=== PATIENT | male | born 1955 | race Caucasian/White ===

== ENCOUNTER → 2022-04-17 | Outpatient (CLI) | payer MEDICARE ==
--- NOTE | 2022-04-17 09:41 | US ---
EXAMINATION TYPE: US abdomen complete DATE OF EXAM: 04/17/2022 COMPARISON: NONE CLINICAL HISTORY: Z13.6 SCREENING FOR CARDIOVASCULAR DISEASE. No pain. No prior surgeries. TECHNIQUE: Multiple sonographic images of the abdomen are obtained. FINDINGS: EXAM MEASUREMENTS: Liver Length: 15.6 cm Gallbladder Wall: 0.1 cm CBD: 0.4 cm Spleen: 6.8 cm Right Kidney: 9.9 x 4.2 x 4.6 cm Left Kidney: 11.0 x 4.7 x 5.9 cm DOUGH MIXING MACHINE OPERATOR NOTES: Limited due to bowel gas Pancreas: Body and tail obscured by overlying bowel gas Liver: wnl Gallbladder: wnl Evidence for sonographic Thomason's sign: neg CBD: wnl Spleen: Limited due to bowel gas Right Kidney: No hydronephrosis or masses seen Left Kidney: No hydronephrosis or masses seen Upper IVC: wnl Abd Aorta: No AAA visualized, plaque visualized IMPRESSION: No evidence of acute process. No evidence of aortic aneurysm.
--- NOTE | 2022-04-17 10:05 | CA ---
Transthoracic Echo Report Name: Arnaldo John Age: 66 Gender: M : 1955 Exam Date: 04/17/2022 08:29 Exam Location: [facility] Ht (in): 72 Wt (lb): 162 Ordering Physician: Ricky Kovacs MD Attending/Referring Phys: Sales And Marketing Assistant Yanelis Martinez RDCS Procedure CPT: Indications: I49.9 arrythmia Cardiac Hx: Technical Quality: Good Contrast 1: Total Dose (mL): Contrast 2: Total Dose (mL): MEASUREMENTS (Male / Female) Normal Values 2D ECHO LV Diastolic Diameter PLAX 5.2 cm 4.2 - 5.9 / 3.9 - 5.3 cm LV Systolic Diameter PLAX 4.7 cm IVS Diastolic Thickness 1.0 cm 0.6 - 1.0 / 0.6 - 0.9 cm LVPW Diastolic Thickness 1.2 cm 0.6 - 1.0 / 0.6 - 0.9 cm LV Relative Wall Thickness 0.4 RV Internal Dim ED PLAX 4.2 cm LA Systolic Diameter LX 3.2 cm 3.0 - 4.0 / 2.7 - 3.8 cm LV Diastolic Volume MOD 4C 113.4 cm??? LV Systolic Volume MOD 4C 61.6 cm??? LV Ejection Fraction MOD 4C 45.7 % LV Diastolic Length 4C 8.3 cm LV Systolic Length 4C 6.5 cm LV Diastolic Volume MOD 2C 125.9 cm??? LV Systolic Volume MOD 2C 72.9 cm??? LV Ejection Fraction MOD 2C 42.1 % LV Diastolic Length 2C 10.4 cm LV Systolic Length 2C 8.3 cm LA Volume 70.6 cm??? 18 - 58 / 22 - 52 cm??? M-MODE Aortic Root Diameter MM 3.5 cm MV E Point Septal Separation 0.5 cm AV Cusp Separation MM 2.0 cm DOPPLER AV Peak Velocity 185.5 cm/s AV Peak Gradient 13.8 mmHg MV Area PHT 5.1 cm??? Mitral E Point Velocity 81.5 cm/s Mitral A Point Velocity 37.8 cm/s Mitral E to A Ratio 2.2 MV Deceleration Time 147.8 ms MV E' Velocity 12.2 cm/s Mitral E to MV E' Ratio 6.7 TR Peak Velocity 264.2 cm/s TR Peak Gradient 27.9 mmHg Right Ventricular Systolic Press 31.6 mmHg FINDINGS Left Ventricle Left ventricular ejection fraction is estimated at 40-45 %. Left ventricular cavity size normal. Borderline left ventricular hypertrophy. Right Ventricle Severe right ventricular dilatation. Right ventricular systolic pressure within normal limits. Right Atrium Normal right atrial size. Left Atrium Moderately increased left atrial volume. Mildly increased left atrial area. No evidence for an atrial septal defect. Mitral Valve Mitral annular calcification. Mild mitral regurgitation. Aortic Valve Trileaflet aortic valve. No aortic valve stenosis or regurgitation. Focal thickening of the aortic valve cusps. Tricuspid Valve Mild tricuspid regurgitation. Pulmonic Valve Trace pulmonic regurgitation. Pericardium Normal pericardium. No pericardial effusion. Aorta Normal size aortic root and proximal ascending aorta. CONCLUSIONS Mild LV systolic dysfunction. Moderate left atrial enlargement. Mild mitral regurgitation. I took sclerosis without any stenosis Previewed by: Dr. Ranjeet Freeman MD (Electronically Signed) Final Date: 17 April 2022 10:04
== END | disposition home or self-care (01) ==
LOC: RADUSWWP 07:29
PROVIDERS: ATTEND Family Medicine
DX: I50.1 Left ventricular failure, unspecified (principal); I34.0 Nonrheumatic mitral (valve) insufficiency
CPT/HCPCS: 76700; 93306

== ENCOUNTER 2022-06-08 08:11 | Day surgery (SDC) | payer MEDICARE ==
[2022-06-06 16:09] VITALS: BMI 21.9
[~2022-06-08 08:11] MED LIST: LACTATED RINGERS 1,000 ML IV SCH
[2022-06-08 08:26] VITALS: RESP 16; TEMP 98.6
[2022-06-08] MEDS ORDERED: PROPOFOL 10 MG/ML 20 ML VIAL IV ONE (09:52)
--- NOTE | 2022-06-08 10:06 | P.PCN ---
Date of Procedure: 06/08/22 Procedure(s) Performed: BRIEF HISTORY: Patient is a 66-year-old pleasant white male scheduled for an elective colonoscopy as a part of screening for colon cancer. PROCEDURE PERFORMED: Colonoscopy with biopsy and snare polyp rectum. PREOPERATIVE DIAGNOSIS: Screening for colon cancer. IV sedation per Anesthesia. PROCEDURE: After informed consent was obtained, the patient, was brought into the endoscopy unit. IV sedation was administered by Anesthesia under continuous monitoring. Digital rectal examination was normal. Initially the Olympus CF-160 flexible video colonoscope was then inserted in the rectum, gradually advanced into the cecum without any difficulty. Careful examination was performed as the scope was gradually being withdrawn. Ileocecal valve and the appendiceal orifice were visualized and appeared normal. Prep was excellent. Mucosa of the cecum 3- 4 mm sessile polyp removed by cold biopsy. In the hepatic flexure there was a 1 cm flat polyp removed by snare polypectomy. Rest of the, ascending colon, transverse colon, descending colon, normal. In the descending colon there was a 5 limited polyp removed by snare polypectomy. Scattered sigmoid diverticulosis seen. Rest of the sigmoid colon, and rectum appeared normal. Retroflexion was performed in the rectum and no lesions were seen. The patient tolerated the procedure well. IMPRESSION: 3-4 mm cecal polyp status post cold biopsy 1 cm flat hepatic flexure polyp status post polypectomy 5 mm descending colon polyp status post polypectomy Scattered sigmoid diverticulosis RECOMMENDATIONS: Findings of this examination were discussed with the patient as well as his family. He was advised to follow with the biopsy results. If the biopsy reveals adenoma he can have a repeat colonoscopy in 3 years.
[2022-06-08 10:17] VITALS: PULSE 50
[2022-06-08 10:36] VITALS: BP 110/66
== END 2022-06-08 10:41 | disposition home or self-care (01) ==
LOC: ORWHC2ENDO 08:11
PROVIDERS: ATTEND Internal Medicine Gastroenterology
DX: Z12.11 Encounter for screening for malignant neoplasm of colon (principal); D12.0 Benign neoplasm of cecum; D12.3 Benign neoplasm of transverse colon; D12.4 Benign neoplasm of descending colon; K57.30 Diverticulosis of large intestine without perforation or abscess without bleeding
CPT/HCPCS: 88305; 45380; 45385; J2704

== ENCOUNTER 2022-06-13 09:46 | Day surgery (SDC) | payer MEDICARE ==
[2022-06-11 08:33] VITALS: BMI 21.7
[~2022-06-13 09:46] MED LIST changes: +ALPRAZolam 0.25 MG TAB PO PRN; +ALPRAZolam 0.5 MG TAB PO PRN; +ASPIRIN 325 MG TAB PO STA; +ATORVASTATIN 80 MG TAB PO STA; +HEPARIN SODIUM,PORCINE 10,000 UNIT in SODIUM CHLORIDE 0.9% 1,000 ML IRRIGATION PRN; +HEPARIN SODIUM,PORCINE 2,500 UNIT in SODIUM CHLORIDE 0.9% 250 ML IRRIGATION PRN; -LACTATED RINGERS 1,000 ML IV SCH; +NITROGLYCERIN SL TABS 0.4 MG TAB SUBLINGUAL PRN; +SODIUM CHLORIDE 0.9% 1,000 ML in EMPTY BAG 1 BAG IV SCH
[2022-06-13 10:09] VITALS: RESP 18; TEMP 97.8
[2022-06-13 10:12] LABS: Basophils # (A) 0.1 k/uL (0-0.2); Basophils % (A) 1 %; Eosinophils # (A) 0.1 k/uL (0-0.7); Eosinophils % (A) 1 %; HCT 44.1 % (39.0-53.0); HGB 14.8 gm/dL (13.0-17.5); Lymphocytes # (A) 1.6 k/uL (1.0-4.8); Lymphocytes % (A) 27 %; MCH 32.3 pg (25.0-35.0); MCHC 33.6 g/dL (31.0-37.0); MCV 96.3 fL (80.0-100.0); Mean Platelet Volume 8.5; Monocytes # (A) 0.4 k/uL (0-1.0); Monocytes % (A) 7 %; Neutrophils # (A) 3.5 k/uL (1.3-7.7); Neutrophils % (A) 61 %; Platelet Count 287 k/uL (150-450); RBC 4.58 m/uL (4.30-5.90); RDW 12.4 % (11.5-15.5); WBC 5.8 k/uL (3.8-10.6)
[2022-06-13 10:37] LABS: African American GFR (CKD) >90 (>60 ml/min/1.73 sqM); Anion Gap 8 mmol/L; Blood Urea Nitrogen 12 mg/dL (9-20); Calcium 9.3 mg/dL (8.4-10.2); Carbon Dioxide 29 mmol/L (22-30); Chloride 103 mmol/L (98-107); Glucose 99 mg/dL (74-99); Non-African American GFR(CKD) >90 (>60 ml/min/1.73 sqM); Potassium 4.1 mmol/L (3.5-5.1); Sodium 140 mmol/L (137-145)
[2022-06-13] MEDS ORDERED: VERAPAMIL 2.5 MG/ML 2 ML AMP ONE (12:38)
[2022-06-13] MEDS ORDERED: HEPARIN SODIUM 1,000 UN/ML (10ML VL) ONE (12:38)
[2022-06-13] MEDS ORDERED: fentaNYL (PF) 50 MCG/ML 2 ML AMP ONE (12:38)
[2022-06-13] MEDS: BENZOCAINE SPRAY 1 CAN MUCOUS MEM ONE ×2 (12:39→12:50)
[2022-06-13] MEDS ORDERED: MIDAZOLAM 2 MG/2 ML VIAL IV ONE (12:50)
[2022-06-13] MEDS ORDERED: IV FLUID CONTINUATION 1,000 ML IV ONE (12:59)
[2022-06-13] MEDS ORDERED: LIDOCAINE 1% INJ 10MG/ML (30 ML VIAL-PF) SQ ONE (13:10)
[2022-06-13] MEDS ORDERED: VERAPAMIL SYRINGE (5 MG/10 ML) INTRAARTER ONE (13:11)
[2022-06-13] MEDS: HEPARIN SODIUM 1,000 UN/ML (10ML VL) IV ONE ×2 (13:13→13:20)
[2022-06-13] MEDS ORDERED: ADENOSINE 90 MG in SODIUM CHLORIDE 0.9% 60 ML IVP ONE (13:40)
[2022-06-13] MEDS ORDERED: RX INFO: IV CONTRAST WAS GIVEN 1 EACH MISC MISCELLANE PRN (13:54)
[2022-06-13] MEDS ORDERED: IOPAMIDOL-370 125ML BTL INJ ONE (13:57)
--- NOTE | 2022-06-13 13:59 | P.PCN ---
Date of Procedure: 06/13/22 Operative Findings: CARDIAC CATHETERIZATION PERFORMING PHYSICIAN: Bert Lawton MD, RPVI PROCEDURE PERFORMED: 1. Selective right and left coronary angiogram 2. Left heart catheterization INDICATION: This is a 66-year-old gentleman who was diagnosed recently was cardiac arrhythmia. As part of the workup was an echocardiogram which revealed cardiomyopathy. The EF was about 40% with evidence of wall motion abnormalities concerning for severe underlying coronary artery disease. In the light of that heart catheterization was advised. He does have multiple risk factors for CAD COMPLICATION: None APPROACH: Right radial artery LEVEL OF SEDATION: Moderate with a sedation length of 35 minute PROCEDURE DESCRIPTION: After obtaining an informed consent, the patient was brought to cardiac laborer road. Local anesthesia was performed using lidocaine subcutaneously. The right radial artery was cannulated using Seldinger technique, the guidewire passed easily, following that we advanced a 5-Bahraini sheath dilator assembly, the wire and dilator were removed and sheath was flushed. Following that, 2 mg of verapamil along with 5000 unit heparin were given. Selective right and left coronary angiogram using a 6-Bahraini JR4 and JL 3.5 cat heters. Following that we did left heart catheterization using 6-Bahraini pigtail catheter. The procedure was completed there was no complication. SELECTIVE CORONARY ANGIOGRAM: The right coronary artery: Large caliber vessel and a dominant vessel. The RCA is angiographically normal. Bifurcates into PDA and PLV branches both appeared to be angiographically normal Left main: Is angiographically normal. Bifurcates into a LCx and LAD The left circumflex: Large caliber vessel nondominant vessel. The proximal left circumflex has eccentric lesion appeared to be in the range of 60%. FFR was performed and came in to be nonischemic 0.83. The LCx proximal to the lesion gives rises into a large OM branch which appeared to be angiographically normal and workup as a ramus intermedius. Second OM branch appeared to be also angiographically normal. The left anterior descending artery: Large caliber vessel. The LAD proximally has mild disease only. This is by the bifurcation of a large diagonal branch which seems to be angiographically normal. The mid and distal LAD appears to have mild disease only. HEMODYNAMICS: The LVEDP was 4 mmHg was no significant gradient across aortic valve FFR OF THE LCX: Anticoagulation was initiated using heparin with continuous ACT monitoring throughout the case. After zeroing the Doppler wire and equalizing between the Doppler wire and the guiding catheter which was JL 3.5 guiding catheter with an FFR with IV adenosine infusion and that came in to be nonischemic 0.83. CONCLUSION: 1. Intermediate lesion involving the proximal LCx. FFR was applied and came in to be nonischemic 0.83. 2. Normal left-sided filling pressure POSTPROCEDURE MANAGEMENT: Maximize medical treatment including aggressive cholesterol control and risk factors modification and smoking cessation
[2022-06-13] MEDS ORDERED: SODIUM CHLORIDE 0.9% 1,000 ML IV SCH (14:00)
[2022-06-13 17:48] VITALS: BP 134/62; PULSE 44
== END 2022-06-13 17:15 | disposition home or self-care (01) ==
LOC: CATHCVL 09:46
PROVIDERS: ATTEND Internal Medicine Interventional Cardiology
DX: I42.9 Cardiomyopathy, unspecified (principal); I50.22 Chronic systolic (congestive) heart failure
CPT/HCPCS: 93571; 93458; C1887; C1769 ×2; C1894; J2250; J2001; J1644; J0153; Q9967; 80048; 85025

== ENCOUNTER 2022-06-13 22:55 | Inpatient (IN) | payer MEDICARE ==
[2022-06-13 23:02] VITALS: RESP 16
--- NOTE | 2022-06-14 01:24 | ED ---
Recheck HPI - General Chief Complaint: Recheck/Abnormal Lab/Rx Stated Complaint: arm bruising, post-cath Time Seen by Provider: 06/13/22 23:43 Source: patient Mode of arrival: ambulatory Limitations: no limitations - History of Present Illness Initial Comments: Patient is a 66-year-old male presented with bruising to the right wrist. Patient had a radial approach cardiac cath this morning with Dr. Lawton. Patient took off his brace and noted swelling and bruising, he was instructed to come in for evaluation. Patient denies pain, numbness, tingling, weakness. No active bleeding. No discoloration of the fingers. - Related Data Home Medications Medication Instructions Recorded Confirmed Famotidine [Pepcid] 20 mg PO DAILY 06/11/22 06/13/22 Aspirin 325 mg PO DAILY 06/13/22 06/13/22 Allergies Allergy/AdvReac Type Severity Reaction Status Date / Time Milk Containing Products Allergy congestion Verified 06/13/22 22:59 [Dairy] Review of Systems ROS Statement: Those systems with pertinent positive or pertinent negative responses have been documented in the HPI. ROS Other: All systems not noted in ROS Statement are negative. Past Medical History Past Medical History: No Reported History History of Any Multi-Drug Resistant Organisms: None Reported Past Surgical History: Heart Catheterization, Tonsillectomy Past Anesthesia/Blood Transfusion Reactions: No Reported Reaction Past Psychological History: No Psychological Hx Reported Smoking Status: Former smoker, Vaper Past Alcohol Use History: None Reported Past Drug Use History: None Reported - Past Family History Mother Family Medical History: No Reported History General Exam Limitations: no limitations General appearance: alert, in no apparent distress Head exam: Present: atraumatic, normocephalic, normal inspection Eye exam: Present: normal appearance Neck exam: Present: normal inspection Respiratory exam: Present: normal lung sounds bilaterally. Absent: respiratory distress, wheezes, rales, rhonchi, stridor Cardiovascular Exam: Present: normal rhythm, bradycardia, normal heart sounds. Absent: systolic murmur, diastolic murmur, rubs, gallop, clicks Extremities exam: Present: full ROM, normal capillary refill. Absent: tenderness Right Forearm Wrist exam: Present: ecchymosis Vascular: Present: normal capillary refill (Extremity is warm and pink), radial pulse (absent), ulnar pulse (2+) Neurological exam: Present: alert, oriented X3, CN II-XII intact Psychiatric exam: Present: normal affect, normal mood Skin exam: Present: warm, dry, intact, normal color. Absent: rash Course Vital Signs 06/13/22 06/14/22 06/14/22 22:59 00:00 01:10 Temperature 97 F L 97.6 F 97.7 F Pulse Rate 43 L 58 L 57 L Respiratory 16 16 16 Rate Blood Pressure 147/61 120/81 127/70 O2 Sat by Pulse 100 99 99 Oximetry 06/14/22 02:43 Temperature Pulse Rate 59 L Respiratory 16 Rate Blood Pressure O2 Sat by Pulse 100 Oximetry Medical Decision Making - Medical Decision Making Patient is a 66-year-old male presenting with chief complaint of bruising to the right wrist. Patient had a stent placed by Dr. Johnson today using a right radial approach. This evening he noted some bruising and mild swelling, reported to ER for evaluation. On examination patient denies any pain, no numbness or tingling. Extremity is warm and pain, normal capillary refill. Radial pulse is absent, ulnar pulse 2+. Ultrasound shows evidence of thrombosis of the entire radial artery with no flow demonstrated. There is arterial flow on the ulnar artery with really normal waveform. No evidence of pseudoaneurysm. No evidence of any significant hematoma. I spoke with vascular surgeon on- call Dr. Crawford who expressed that this issue should be handled by Dr. Johnson. I discussed this case at length with my attending Dr. Lcaey who decided that the patient will be admitted to medicine with his offender job retention specialist on consult, patient is started on high-dose heparin, as patient has good flow through the ulnar artery and the limb is not compromised at this time. Patient is agreeable with this plan. I spoke with Dr. Bay who accepted admission. I discussed this case in detail with my attending Dr. Lacey - Lab Data Result diagrams: 06/14/22 03:21 06/14/22 02:36 Disposition Clinical Impression: Radial artery thrombosis Disposition: ADMITTED IP TO THIS [facility] Condition: Fair Time of Disposition: 02:14 Decision to Admit Reason: Admit from EC Decision Date: 06/14/22 Decision Time: 02:14
--- NOTE | 2022-06-14 01:34 | US ---
EXAMINATION TYPE: US upper ext pseudo RT DATE OF EXAM: 06/14/2022 COMPARISON: NONE CLINICAL HISTORY: bruising . Patient states he noticed bruising after a heart cath this morning with a right radial approach. Patient denies any pain. Could not get flow in distal and mid radial artery, echoes seen within. Prox radial artery had some f low. Distal brachial artery seemed to have good flow. No edema or fluid collections seen. Ulnar arter y had good flow. IMPRESSION: There is normal waveform in the brachial artery. No thrombosis. There is evidence of thrombosis of the entire radial artery with no flow demonstrated. There is arter ial flow in the ulnar artery with fairly normal waveform. No evidence of a pseudoaneurysm. No evidenc e of any significant hematoma.
[2022-06-14] MEDS ORDERED: HEPARIN SODIUM 1,000 UN/ML (10ML VL) IV PRN (02:02)
[2022-06-14] MEDS ORDERED: HEPARIN SODIUM 1,000 UN/ML (10ML VL) IV ONE (02:02)
[2022-06-14] MEDS ORDERED: NALOXONE 0.4 MG/ML 1 ML VIAL IV PRN (02:11)
[2022-06-14] MEDS: HEPARIN SOD,PORK IN 0.45% NACL 25,000 UNIT in 0.45% NACL 1 250ML.BAG IV SCH ×2 (02:41→06:06)
[2022-06-14 03:09] LABS: ALT 26 U/L (4-49); AST 24 U/L (17-59); African American GFR (CKD) >90 (>60 ml/min/1.73 sqM); Albumin 4.8 g/dL (3.5-5.0); Alkaline Phosphatase 82 U/L (38-126); Anion Gap 8 mmol/L; Blood Urea Nitrogen 13 mg/dL (9-20); Calcium 9.5 mg/dL (8.4-10.2); Carbon Dioxide 27 mmol/L (22-30); Chloride 103 mmol/L (98-107); Creatine Kinase 70 U/L (55-170); Glucose 104 mg/dL (74-99); Non-African American GFR(CKD) >90 (>60 ml/min/1.73 sqM); Potassium 4.4 mmol/L (3.5-5.1); Sodium 138 mmol/L (137-145); Total Bilirubin 0.6 mg/dL (0.2-1.3); Total Protein 7.4 g/dL (6.3-8.2)
[2022-06-14 04:22] LABS: Basophils # (A) 0.1 k/uL (0-0.2); Basophils % (A) 1 %; Eosinophils # (A) 0.1 k/uL (0-0.7); Eosinophils % (A) 1 %; HCT 39.8 % (39.0-53.0); HGB 13.8 gm/dL (13.0-17.5); Lymphocytes # (A) 1.2 k/uL (1.0-4.8); Lymphocytes % (A) 16 %; MCH 33.3 pg (25.0-35.0); MCHC 34.7 g/dL (31.0-37.0); MCV 95.9 fL (80.0-100.0); Mean Platelet Volume 9.1; Monocytes # (A) 0.5 k/uL (0-1.0); Monocytes % (A) 6 %; Neutrophils # (A) 5.8 k/uL (1.3-7.7); Neutrophils % (A) 75 %; Platelet Count 254 k/uL (150-450); RBC 4.14 m/uL (4.30-5.90); RDW 12.3 % (11.5-15.5); WBC 7.7 k/uL (3.8-10.6)
[2022-06-14 04:51] LABS: Prothrombin Time 11.2 sec (9.0-12.0)
[2022-06-14 05:00] LABS: Partial Thromboplastin Time 117.9 sec (22.0-30.0)
--- NOTE | 2022-06-14 05:06 | P.HPIM ---
History of Present Illness H&P Date: 06/14/22 Chief Complaint: bruising right wrist post cath 66 year old male denies any significant past medical history patient comes in after removing his right wrist band post left heart cath through radial access, and noticed big bruise and some swelling, notified his meter record clerk who recommended coming to the hospital for evaluation doppler US of the wrist showed thrombosed radial artery . patient otherwise denies any medical problems , left heart cath was done due to bradycardia (asymptomatic) patient is active, plays golf and run on regular basis . left heart cath results showed no significant blockage. recommendations were for max medical therapy Review of Systems Pertinent positives as noted in HPI. All other systems were reviewed and are negative Past Medical History Past Medical History: No Reported History History of Any Multi-Drug Resistant Organisms: None Reported Past Surgical History: Heart Catheterization, Tonsillectomy Past Anesthesia/Blood Transfusion Reactions: No Reported Reaction Past Psychological History: No Psychological Hx Reported Smoking Status: Former smoker, Vaper Past Alcohol Use History: None Reported Past Drug Use History: None Reported - Past Family History Mother Family Medical History: No Reported History Additional Family Medical History / Comment(s): no cardiac history Medications and Allergies Home Medications Medication Instructions Recorded Confirmed Type Famotidine [Pepcid] 20 mg PO DAILY 06/11/22 06/13/22 History Aspirin 325 mg PO DAILY 06/13/22 06/13/22 History Allergies Allergy/AdvReac Type Severity Reaction Status Date / Time Milk Containing Products Allergy congestion Verified 06/13/22 22:59 [Dairy] Physical Exam Vitals: Vital Signs Temp Pulse Resp BP Pulse Ox 06/14/22 01:10 97.7 F 57 L 16 127/70 99 06/14/22 00:00 97.6 F 58 L 16 120/81 99 06/13/22 22:59 97 F L 43 L 16 147/61 100 Intake and Output 06/13/22 06/13/22 06/14/22 14:59 22:59 06:59 Other: Weight 72.121 kg Constitutional: No acute distress, conversant, pleasant Eyes: Anicteric sclerae, moist conjunctiva, Pupils equal round reactive to light ENMT: NC/AT Oropharynx clear, no erythema, or exudates Neck: Supple, no masses, or JVD No carotid bruits No thyromegaly Lungs: Clear to auscultation Clear to percussion Normal respiratory effort, no accessory muscle use Cardiovascular: Heart regular in rate and rhythm, No murmurs, gallops, or rubs No peripheral edema Abdominal: Soft Nontender, no guarding, rebound or rigidity Abdomen moving with respiration Normoactive bowel sounds No hepatomegaly, No splenomegaly No palpable mass No abdominal wall hernia noted Skin: echymosis and swelling over right wrist. otherwise. Normal temperature, tone, texture, turgor Extremities: No digital cyanosis No clubbing Pedal pulses intact and symmetrical Radial pulses intact and symmetrical (however, doppler US showed thrombosis of the radial artery ) No calf tenderness Psychiatric: Alert and oriented to person, place and time Appropriate affect fair judgement Neuro Muscles Strength 5/5 in all 4 extremities Sensation to light touch grossly present throughout Cranial nerves II-XII grossly intact No focal sensory deficits Lymphatics: no palpable cervical or supraclavicular , or inguinal lymph nodes Results CBC & Chem 7: 06/14/22 03:21 06/14/22 02:36 Assessment and Plan Assessment: right wrist swelling and echymosis post left heart cath with radial access doppler US showed thrombosed right radial artery upon physical exam , pulsation is palpable and intact over the right radial artery continue with heparin gtt cardiology consult for evaluation continue ASA, statin full code DVT on heparin gtt as above
[2022-06-14] MEDS ORDERED: PANTOPRAZOLE 40 MG TABLET PO SCH (07:30)
[2022-06-14] MEDS ORDERED: ASPIRIN 325 MG TAB PO SCH (09:00)
--- NOTE | 2022-06-14 09:28 | P.CRDCN ---
History of Present Illness Consult date: 06/14/22 Requesting physician: Keny Bay Reason for Consult (text): right radial thrombus s/p cardiac cath Chief complaint: right radial puncture site ecchymosis History of present illness: This is a pleasant 66-year-old gentleman who follows with Dr. Lawton in the office. Has a history of tobacco use and family history of CAD. Recently underwent cardiac catheterization after having a stress test performed in our office that showed evidence of cardiomyopathy with an ejection fraction of 45% a s well as wall motion abnormalities concerning for severe CAD. Cardiac catheterization revealed intermediate disease involving the left circumflex and an FFR came back to be nonischemic. Patient was discharged home and presented last night with complaints of bruising at the right radial puncture site. Examination at that time was felt to show lack of radial pulse and ultrasound was done that showed radial artery thrombosis. He has no complaints of numbness or tingling in the hand, temperature change, or weakness. Ulnar pulse is palpable and upon examination this morning by us patient's radial pulse is palpable. Does have some ecchymosis at the site. Denies any complaints of chest discomfort, shortness of breath, orthopnea or PND. He has no palpitations or edema. No nausea, vomiting. He was initiated on heparin drip. Past Medical History Past Medical History: No Reported History History of Any Multi-Drug Resistant Organisms: None Reported Past Surgical History: Heart Catheterization, Tonsillectomy Past Anesthesia/Blood Transfusion Reactions: No Reported Reaction Past Psychological History: No Psychological Hx Reported Smoking Status: Former smoker, Vaper Past Alcohol Use History: None Reported Past Drug Use History: None Reported - Past Family History Mother Family Medical History: No Reported History Additional Family Medical History / Comment(s): no cardiac history Medications and Allergies Home Medications Medication Instructions Recorded Confirmed Type Famotidine [Pepcid] 20 mg PO DAILY PRN 06/11/22 06/14/22 History Allergies Allergy/AdvReac Type Severity Reaction Status Date / Time Milk Containing Products AdvReac congestion Verified 06/14/22 07:18 [Dairy] Physical Exam Vitals: Vital Signs Temp Pulse Resp BP Pulse Ox 06/14/22 06:57 97.9 F 57 L 16 127/54 100 06/14/22 06:08 54 L 16 99 06/14/22 05:06 57 L 16 122/80 100 06/14/22 02:43 59 L 16 100 06/14/22 01:10 97.7 F 57 L 16 127/70 99 06/14/22 00:00 97.6 F 58 L 16 120/81 99 06/13/22 22:59 97 F L 43 L 16 147/61 100 Intake and Output 06/13/22 06/14/22 06/14/22 22:59 06:59 14:59 Intake Total 44.355 14.244 Balance 44.355 14.244 Intake: Intake, IV Titration 44.355 14.244 Amount Heparin Sod,Pork in 0.45% 44.355 14.244 NaCl 25,000 unit In 0.45 % NaCl 1 250ml.bag @ 18 UNITS/KG/HR 12.982 mls/hr IV .[id number] [facility] Rx#: [id number] Other: Weight 72.121 kg PHYSICAL EXAMINATION: This is a 66-year-old male in no apparent distress at the time of my examination. HEENT: Head is atraumatic, normocephalic. Pupils are equal, round. Sclerae anicteric. Conjunctivae are clear. Mucous membranes of the mouth are moist. Neck is supple. There is no elevated jugular venous pressure. No carotid bruit is heard. CHEST EXAMINATION: Clear to auscultation bilaterally. No wheezes rales or rhonchi. Respirations even and nonlabored. HEART EXAMINATION: Heart regular, positive S1 and S2. No S3. No S4. No clicks , rubs or murmurs. ABDOMEN: Soft, nontender. Bowel sounds are heard. No organomegaly noted. EXTREMITIES: 2+ peripheral pulses with no evidence of peripheral edema and no calf tenderness noted. Right radial puncture site soft with evidence of ecchymosis and pulses palpable. NEUROLOGIC EXAMINATION: Patient is awake, alert and oriented x3. Results 06/14/22 03:21 06/14/22 02:36 Cardiac Enzymes 06/14/22 Range/Units 02:36 AST 24 (17-59) U/L Coagulation 06/14/22 Range/Units 03:21 PT 11.2 (9.0-12.0) sec APTT 117.9 H* (22.0-30.0) sec CBC 06/14/22 Range/Units 03:21 WBC 7.7 (3.8-10.6) k/uL RBC 4.14 L (4.30-5.90) m/uL Hgb 13.8 (13.0-17.5) gm/dL Hct 39.8 (39.0-53.0) % Plt Count 254 (150-450) k/uL Comprehensive Metabolic Panel 06/14/22 Range/Units 02:36 Sodium 138 (137-145) mmol/L Potassium 4.4 (3.5-5.1) mmol/L Chloride 103 (98-107) mmol/L Carbon Dioxide 27 (22-30) mmol/L BUN 13 (9-20) mg/dL Creatinine 0.70 (0.66-1.25) mg/dL Glucose 104 H (74-99) mg/dL Calcium 9.5 (8.4-10.2) mg/dL AST 24 (17-59) U/L ALT 26 (4-49) U/L Alkaline Phosphatase 82 (38-126) U/L Total Protein 7.4 (6.3-8.2) g/dL Albumin 4.8 (3.5-5.0) g/dL Current Medications Generic Name Dose Route Start Last Admin Trade Name Freq PRN Reason Stop Dose Admin Aspirin 325 mg 06/14/22 09:00 Aspirin 325 Mg Tab PO DAILY [facility] Heparin Sodium (Porcine) 0 unit 06/14/22 02:02 Heparin Sodium 1,000 Un/Ml (10ml Vl) IV PER PROTOCOL PRN Low PTT Protocol Heparin Sodium/Sodium Chloride 250 mls @ 12.982 mls/hr 06/14/22 02:15 06/14/22 07:25 25,000 unit/ Sodium Chloride IV 15 units/kg/hr .[id number] [facility] 10.818 mls/hr Titration Protocol 18 UNITS/KG/HR Naloxone HCl 0.2 mg 06/14/22 02:11 Naloxone 0.4 Mg/Ml 1 Ml Vial IV Q2M PRN Opioid Reversal Pantoprazole Sodium 40 mg 06/14/22 07:30 06/14/22 07:00 Pantoprazole 40 Mg Tablet PO 40 mg [id number] [facility] Administration Intake and Output 06/13/22 06/14/22 06/14/22 22:59 06:59 14:59 Intake Total 44.355 14.244 Balance 44.355 14.244 Intake: Intake, IV Titration 44.355 14.244 Amount Heparin Sod,Pork in 0.45% 44.355 14.244 NaCl 25,000 unit In 0.45 % NaCl 1 250ml.bag @ 18 UNITS/KG/HR 12.982 mls/hr IV .[id number] [facility] Rx#: [id number] Other: Weight 72.121 kg 06/14/22 03:21 06/14/22 02:36 Assessment and Plan Assessment: #1 right radial artery thrombus status post cardiac catheterization #2 CAD with intermediate lesion in the left circumflex #3 nicotine dependence Plan: From cardiology's perspective the right hand does not appear to be compromised, pulses palpable. We will stop IV heparin. From our standpoint patient may be discharged home and follow-up with Dr. Lawton as an outpatient. CATERPILLAR DRIVER note has been reviewed, I agree with a documented findings and plan of care. Patient was seen and examined.
--- NOTE | 2022-06-14 10:21 | P.DS ---
Providers Date of admission: 06/14/22 02:13 Attending physician: Keny Bay MD Consults: 06/14/22 02:11 Consult Physician Stat Consulting Provider: Bert Lawton Consult Reason/Comments: radial artery thrombus post stent placement Do you want consulting provider notified?: Yes Primary care physician: Ricky Kovacs Hospital Course: Discharge Diagnosis: Right wrist swelling and ecchymosis status post left heart catheterization Arterial Dopplers showing right radial artery thrombosed however there is no compromise of blood flow seen clinically Hospital Course: 66 year old male denies any significant past medical history patient comes in after removing his right wrist band post left heart cath through radial access, and noticed big bruise and some swelling, 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 patient otherwise denies any medical problems , left heart cath was done due to bradycardia (asymptomatic) patient is active, plays golf and run on regular basis . left heart cath results showed no significant blockage. recommendations were for max medical therapy Patient was seen by cardiology and he had no compromise of blood flow to his hand. Cardiology recommended to discontinue the heparin drip and deemed in stable for discharge. Patient seen and examined at bedside.[] Vital signs reviewed and stable. General: [non toxic], [no distress], [appears at stated age] Derm: [warm], [dry] Head: [atraumatic], [normocephalic], [symmetric] Eyes: [EOMI], [no lid lag], [anicteric sclera] Mouth: [no lip lesion], [mucus membranes moist] Cardiovascular: [S1S2 reg], [no murmur], [positive posterior tibial pulse bilateral], Lungs: [CTA bilateral], [no rhonchi, no rales] , [no accessory muscle use] Abdominal: [soft], [ nontender to palpation], [no guarding], [no appreciable organomegaly] Ext: [no gross muscle atrophy], [no edema], [no contractures] ecchymosis in the right wrist area Neuro: [ CN II-XI grossly intact], [no focal neuro deficits] Psych: [Alert], [oriented], [appropriate affect] A total of [25] minutes of time were spent preparing this complex discharge summary . Patient Condition at Discharge: Fair Plan - Discharge Summary New Discharge Prescriptions: Continue Famotidine [Pepcid] 20 mg PO DAILY PRN PRN Reason: GERD Discharge Medication List Famotidine [Pepcid] 20 mg PO DAILY PRN 06/11/22 [History] Follow up Appointment(s)/Referral(s): Ricky Kovacs MD [Primary Care Provider] - 1-2 days Discharge Disposition: HOME SELF-CARE
[2022-06-14 10:59] VITALS: BP 131/69; PULSE 46; TEMP 98.9
== END 2022-06-14 10:45 | disposition home or self-care (01) | DRG 315 ==
LOC: EC 22:55 → 5NMEDONC 06-14 02:13
PROVIDERS: ADMIT Internal Medicine; ATTEND Internal Medicine
DX: T82.867A Thrombosis due to cardiac prosthetic devices, implants and grafts, initial encounter (principal); I42.9 Cardiomyopathy, unspecified; I74.2 Embolism and thrombosis of arteries of the upper extremities; I25.10 Atherosclerotic heart disease of native coronary artery without angina pectoris; Z79.82 Long term (current) use of aspirin; F17.290 Nicotine dependence, other tobacco product, uncomplicated; Z79.899 Other long term (current) drug therapy; Z82.49 Family history of ischemic heart disease and other diseases of the circulatory system; Z91.011 Allergy to milk products
CPT/HCPCS: 36415; 80048; 80053; 82550; 83605; 85025; 85610; 85730; 96365; 96366; 99284; 99285

== ENCOUNTER → 2023-07-17 | Outpatient (CLI) | payer MEDICARE ==
--- NOTE | 2023-07-17 08:55 | CTL ---
EXAMINATION TYPE: CT Low Dose Lung DATE OF EXAM ORDERED: 07/17/2023 HISTORY: 67-year-old male with Z1 2.2, Z87.891, former smoker with 37 pack year history. Lung cancer screening CT DLP: 93.[address] CTDI: 2.4 mGy Automated exposure control for dose reduction was used. SCREENING VISIT: Baseline COMPARISON: None TECHNIQUE: Low dose computed tomography scan was performed through the chest with coronal and sagitta l reconstructions. CT DIAGNOSTIC QUALITY: Satisfactory FINDINGS: The heart is normal size without pericardial effusion. Three-vessel coronary artery calcifications ar e present in remarkable for coronary artery disease. Ectatic ascending aorta 3.8 cm. Mild metastatic arch calcifications. Bovine configuration to the aort ic arch. Ectatic upper descending thoracic aorta at 3.4 cm. No thoracic lymph adenopathy by CT size criteria. There is an 8 mm anterior right midlung pulmonary nodule, axial image 171. Tiny 3 mm pulmonary nodule lateral right base, axial images 273. Tiny 3 mm pulmonary nodule lateral right midlung, axial image 158. 3 mm lateral right upper lobe pulmonary nodule, axial image 119. Mild emphysematous change. No consolidation or pleural effusion. Tiny fat-containing left [place] h ernia. There is a tiny hiatal hernia. Otherwise, visualized upper abdomen shows no gross abnormality. Bones: Moderate degenerative disc disease lower thoracic spine. IMPRESSION : 1. LungRADS Category 4A (suspicious, 5-15% chance of malignancy); 8 mm right midlung pulmonary nodule which should be reassessed at a three-month follow-up low-dose CT chest. 2. COPD with mild emphysema. 3. Prominent three-vessel coronary artery calcifications. CT LUNG RAD AND CT CHEST RECOMMENDATION: Lung-Rad 4A Suspicious: Follow-up 3 month LDCT or PET/CT may be used when there is a > 8 mm solid component. S Modifier (other clinically significant findings): None
== END | disposition home or self-care (01) ==
LOC: RADCTMAIN 07:40
PROVIDERS: ATTEND Family Medicine
DX: Z12.2 Encounter for screening for malignant neoplasm of respiratory organs (principal); J44.9 Chronic obstructive pulmonary disease, unspecified; I25.10 Atherosclerotic heart disease of native coronary artery without angina pectoris; J43.9 Emphysema, unspecified; Z87.891 Personal history of nicotine dependence
CPT/HCPCS: 71271

== ENCOUNTER → 2023-08-15 | Outpatient (CLI) | payer MEDICARE ==
--- NOTE | 2023-08-18 12:34 | PE ---
EXAMINATION TYPE: PET CT fusion skull to thigh DATE OF EXAM: 08/15/2023 COMPARISON: Low-dose CT chest 07/17/2023 Prior PET/CT: None at this location HISTORY: Pulmonary nodule TECHNIQUE: Following the intravenous administration of 12.93 mCi of F-18 FDG, whole body images are performed from the skull base to the midthigh. Images are reviewed on the computer in the coronal, a xial, and sagittal planes. Reconstructed rotating images are created on independent workstation and reviewed on the computer. A localization and attenuation correction CT is performed in conjunction with the PET scan. DLP: 370.23 mGycm SCAN: Initial Blood glucose: 85 mg/dL Average Mediastinum SUV: 2.12 Average Liver SUV: 3.09 FINDINGS: NECK: No abnormal uptake THORAX: No abnormal uptake grade Tiny amount of density within the periphery of the anterior right midlung, image 112, has a normal VERA V of 0.56. This is likely below the threshold of detectability however. Monitoring is recommended. ABDOMEN: No abnormal uptake PELVIS: No abnormal uptake OSSEOUS STRUCTURES: No abnormal uptake LOCALIZATION CT: Scattered diverticula are present. No acute diverticulitis is evident COMPARISON: Finding correlates with the low-dose CT chest findings IMPRESSION: 1. No suspicious uptake to suggest neoplastic process. 2. No abnormal Uptake within the region of the abnormal low-dose CT chest finding is present. Size ho wever is borderline and monitoring with low-dose CT chest is recommended. Follow-up low-dose CT chest exam in 5 months is recommended. 3. Diverticulosis without evidence of acute diverticulitis.
== END | disposition home or self-care (01) ==
LOC: RADPETMAIN 13:07
PROVIDERS: ATTEND Family Medicine
DX: R91.1 Solitary pulmonary nodule (principal); K57.90 Diverticulosis of intestine, part unspecified, without perforation or abscess without bleeding
CPT/HCPCS: 78815; A9552

== ENCOUNTER → 2024-01-17 | Outpatient (CLI) | payer MEDICARE ==
--- NOTE | 2024-01-18 17:01 | CTL ---
EXAMINATION TYPE: CT Low Dose Lung DATE OF EXAM ORDERED: 01/17/2024 HISTORY: Pulmonary nodule, nicotine dependence. Lung cancer screening CT DLP: 96.7 mGycm Automated exposure control for dose reduction was used. SCREENING VISIT: Subsequent COMPARISON: 07/17/2023 TECHNIQUE: Low dose computed tomography scan was performed through the chest at 1 mm thick sections a nd reconstructed images in the coronal plane at [address] DIAGNOSTIC QUALITY: Satisfactory FINDINGS: LUNG NODULES: Present, detailed below: 1 there is a 0.5 cm nodule anterior right midlung. Series 4 image 190. This may be the previous densi ty which is smaller than prior. 2. Tiny peripheral nodules, image 274, 163 are stable. 3. Tiny density in the periphery of the right lung, image 120 appears smaller than comparison. LUNGS: COPD: Severity: None Fibrosis: Severity: None Lymph nodes: None Other findings: None RIGHT PLEURAL SPACE: Effusion: None Calcification: None Thickening: None Pneumothorax: None LEFT PLEURAL SPACE: Effusion: None Calcification: None Thickening: None Pneumothorax: None HEART: Heart Size: Normal Coronary calcification: Mild Pericardial effusion: None OTHER FINDINGS: Upper abdomen: Normal Bony thorax: Normal Supraclavicular region: Normal Other: None IMPRESSION: Benign appearance FOLLOW UP CT CHEST RECOMMENDATION: Follow-up low-dose CT chest one year CT LUNG RAD: Lung-Rad 2 Benign Appearance or Behavior
== END | disposition home or self-care (01) ==
LOC: RADCTMAIN 07:05
PROVIDERS: ATTEND Family Medicine
DX: R91.1 Solitary pulmonary nodule (principal)
CPT/HCPCS: 71271

== ENCOUNTER → 2025-01-18 | Outpatient (CLI) | payer MEDICARE ==
--- NOTE | 2025-01-19 09:07 | CTL ---
EXAMINATION TYPE: CT Low Dose Lung DATE OF EXAM: 01/18/2025 11:27 AM COMPARISON: 01/17/2024 SCREENING VISIT: Subsequent CT DIAGNOSTIC QUALITY: Satisfactory CLINICAL INDICATION: Male, 69 years old with history of Z12.2 LUNG CA SCR Z87.891 FORMER SMOKER, form er smoker, quit 4 years ago. smoked 1 PPD x50 years, Lung cancer screening, History of tobacco use. TECHNIQUE: Low dose computed tomography scan was performed through the chest at 1 mm thick sections a nd reconstructed images in the coronal plane at 1 mm thick sections. Contrast used: mL of , (none if empty) Oral contrast used: (none if empty) CT DLP: 105.1 mGycm, Automated exposure control for dose reduction was used. CT CTDI: 2.6 mGy, Automated exposure control for dose reduction was used. FINDINGS: LUNG NODULES: Present, detailed below: 1. Persistent 0.6 cm triangular density anterior lateral right mid lung. 2. 0.3 cm peripheral nodule right lateral upper lung field. Series 4 image 103. 3. Persistent punctate density appears stable lateral right lung. Series 4 image 147. LUNGS: COPD: Severity: None Fibrosis: Severity: None Lymph nodes: None Other findings: None RIGHT PLEURAL SPACE: Effusion: None Calcification: None Thickening: None Pneumothorax: None LEFT PLEURAL SPACE: Effusion: None Calcification: None Thickening: None Pneumothorax: None HEART: Other: Ascending thoracic aorta at the level the main pulmonary artery measures 4.0 cm. The main pul monary artery at the bifurcation measures 2.8 cm. Heart Size: Normal Coronary calcification: Moderate coronary artery calcifications present. Pericardial effusion: None OTHER FINDINGS: Upper abdomen: Normal Bony thorax: Normal Supraclavicular region: Normal IMPRESSION: No suspicious changes suggest primary or metastatic neoplasm. FOLLOW UP CT CHEST RECOMMENDATION: Follow-up low-dose CT chest one year CT LUNG RAD: Lung-Rad 2 Benign Appearance or Behavior [facility], Workstation: [employer], 01/19/2025 9:04 AM
== END | disposition home or self-care (01) ==
LOC: RADCTMAIN 11:04
PROVIDERS: ATTEND Family Medicine
DX: Z12.2 Encounter for screening for malignant neoplasm of respiratory organs (principal); Z87.891 Personal history of nicotine dependence
CPT/HCPCS: 71271